=== PATIENT | female | born 1960 | race Caucasian/White ===

== ENCOUNTER 2018-12-15 15:51 | Inpatient (IN) | payer BC ==
[~2018-12-15] VITALS: Ht 165.1 cm; Wt 70.8 kg
[2018-12-15] MEDS ORDERED: normal saline 1000ML IV soln IVB ONE (16:15)
[2018-12-15] MEDS ORDERED: metoclopramide 5 mg/ml inj IV ONE (16:20)
[2018-12-15] MEDS: diatr meglu/diatrizoate 30ml oral sol.-(3 dose) bottle PO SCH ×3 (16:38→18:13)
[2018-12-15 16:54] LABS: BASOPHILS % (AUTO) 0.2 % (0-1); EOSINOPHILS % (AUTO) 0.1 % (0-6); HEMATOCRIT 41.4 % (35.0-45.0); HEMOGLOBIN 13.9 g/dl (12.0-16.0); LYMPHOCYTES # (AUTO) 1.3 X10'3 (1.1-4.8); LYMPHOCYTES % (AUTO) 20.3 % (21-51); MEAN CORPUSCULAR HEMOGLOBIN 31.4 PG (27.0-31.0); MEAN CORPUSCULAR HGB CONC 33.5 g/dL (33.0-36.5); MEAN CORPUSCULAR VOLUME 93.7 FL (78-98); MEAN PLATELET VOLUME 8.8 FL (7.4-10.4); MONOCYTES # (AUTO) 0.3 X10'3 (0-0.9); MONOCYTES % (AUTO) 5.5 % (2-12); NEUTROPHILS # (AUTO) 4.7 X10'3 (1.8-7.7); NEUTROPHILS % (AUTO) 73.9 % (42-75); PLATELET COUNT 251 X10'3 (140-440); RED BLOOD COUNT 4.41 X10'6 (4.20-5.60); RED CELL DISTRIBUTION WIDTH 13.4 % (11.5-14.5); WHITE BLOOD COUNT 6.3 X10'3 (4.5-11.0)
[2018-12-15 17:05] LABS: ALANINE AMINOTRANSFERASE 19 U/L (12-78); ALBUMIN 3.8 G/DL (3.4-5.0); ALBUMIN/GLOBULIN RATIO 1.1 (1.1-1.5); ALKALINE PHOSPHATASE 80 IU/L (46-116); ANION GAP 9 (8-16); ASPARTATE AMINO TRANSFERASE 17 U/L (10-37); BILIRUBIN,TOTAL 0.5 MG/DL (0.1-1.0); BLOOD UREA NITROGEN 12 MG/DL (7-18); BUN/CREATININE RATIO 15.4 (6.6-38.0); CALCIUM 8.8 MG/DL (8.5-10.1); CHLORIDE 103 MMOL/L (99-107); CREATININE 0.78 MG/DL (0.40-0.90); GLUCOSE 102 MG/DL (70-104); LIPASE 70 U/L (73-393); POTASSIUM 3.7 MMOL/L (3.5-5.1); SODIUM 138 MMOL/L (135-145); TOTAL CARBON DIOXIDE 26.1 MMOL/L (24-32); TOTAL PROTEIN 7.4 G/DL (6.4-8.2); eGFR 76 ML/MIN
[2018-12-15] MEDS ORDERED: ketorolac trometh. 30mg/ml inj. IV ONE (17:30)
[2018-12-15] MEDS ORDERED: iohexol 300mg/ml 100ml inj. ONE (17:35)
[2018-12-15] MEDS ORDERED: proCHLORperazine 10 MG/2 ml inj IV ONE (18:40)
[2018-12-15 18:42] LABS: CLARITY,URINE SLIGHTLY CLOUDY (Clear); COLOR,URINE YELLOW (Yellow); GLUCOSE, URINE NEGATIVE (Neg); KETONES,URINE 40 mg/dl (Neg); LEUKOCYTE ESTERASE ,URINE NEGATIVE (Neg); NITRITES, URINE NEGATIVE (Neg); OCCULT BLOOD,URINE LARGE (Neg); PROTEIN,URINE NEGATIVE (Neg); UROBILINOGEN,URINE 0.2 E.U/dL (0.2-1.0)
[2018-12-15 18:48] LABS: BACTERIA,URINE FEW /HPF (Neg); SQUAMOUS EPITHELIAL CELL,UR MODERATE /LPF (FEW); UA COLLECTION TYPE CLN CATCH MIDSTREAM; WBC,URINE NONE SEEN /HPF (0-4)
[2018-12-15] MEDS ORDERED: fentaNYL/PF 50MCG/1 ML 2ML syringe IV ONE (20:05)
[2018-12-15] MEDS ORDERED: piperacillin/tazo 3.375gm/50ml 50 ML IV ONE (20:05)
[2018-12-15] MEDS ORDERED: normal saline 1000ML IV soln IV ONE (20:05)
[2018-12-15] MEDS ORDERED: NO HOME MEDS (20:13)
[2018-12-15] MEDS ORDERED: MIDAZolam 5mg/5ml vial ONE (20:20)
[2018-12-15] MEDS ORDERED: fentaNYL/PF 50MCG/1 ML 2ML syringe ONE (20:20)
--- NOTE | 2018-12-15 20:29 | NUR ---
NG TUBE ATTEMPTED. NO SUCCESS. ES PERRY NOTIFIED.
[2018-12-15 20:40] VITALS: BP 114/62
--- NOTE | 2018-12-15 20:41 | NUR ---
PT TO GI LAB VIA [facility]. [facility]KK[facility] PENALOZA TRANSPORTING.
[2018-12-15] MEDS ORDERED: ondansetron/PF 4mg/2ml inj IV PRN (21:05)
[2018-12-15] MEDS ORDERED: morphine 2 MG/ML inj. syringe IV PRN ×2 (21:05)
[2018-12-15] MEDS ORDERED: acetaminophen 325mg tablet PO PRN (21:05)
[2018-12-15 22:15] VITALS: BP 101/56
[2018-12-15 22:25] VITALS: BP 101/54
[2018-12-15 22:35] VITALS: BP 104/60
[2018-12-15 22:45] VITALS: BP 105/63
[2018-12-15 23:00] VITALS: BP 110/41
--- NOTE | 2018-12-15 23:00 | NUR ---
Patient in room ED 9. I have received report from CA Easton and had the opportunity to ask questions and assume patient care.
[2018-12-15] MEDS: normal saline 1000ml 1,000 ML IV SCH (23:53)
[2018-12-16] MEDS: piperacillin/tazo 3.375gm/50ml 50 ML IV SCH ×2 (04:28→11:43)
[2018-12-16 05:10] LABS: BASOPHILS % (AUTO) 0.4 % (0-1); EOSINOPHILS % (AUTO) 0.2 % (0-6); HEMATOCRIT 33.4 % (35.0-45.0); HEMOGLOBIN 11.3 g/dl (12.0-16.0); LYMPHOCYTES # (AUTO) 1.8 X10'3 (1.1-4.8); LYMPHOCYTES % (AUTO) 30.6 % (21-51); MEAN CORPUSCULAR HEMOGLOBIN 31.8 PG (27.0-31.0); MEAN CORPUSCULAR HGB CONC 33.9 g/dL (33.0-36.5); MEAN CORPUSCULAR VOLUME 93.7 FL (78-98); MEAN PLATELET VOLUME 8.9 FL (7.4-10.4); MONOCYTES # (AUTO) 0.4 X10'3 (0-0.9); MONOCYTES % (AUTO) 7.4 % (2-12); NEUTROPHILS # (AUTO) 3.7 X10'3 (1.8-7.7); NEUTROPHILS % (AUTO) 61.4 % (42-75); PLATELET COUNT 208 X10'3 (140-440); RED BLOOD COUNT 3.57 X10'6 (4.20-5.60); RED CELL DISTRIBUTION WIDTH 13.4 % (11.5-14.5)
[2018-12-16 05:52] LABS: ALANINE AMINOTRANSFERASE 15 U/L (12-78); ALBUMIN 2.7 G/DL (3.4-5.0); ALKALINE PHOSPHATASE 57 IU/L (46-116); ANION GAP 9 (8-16); ASPARTATE AMINO TRANSFERASE 14 U/L (10-37); BILIRUBIN,TOTAL 0.5 MG/DL (0.1-1.0); BLOOD UREA NITROGEN 7 MG/DL (7-18); BUN/CREATININE RATIO 10.6 (6.6-38.0); CALCIUM 7.7 MG/DL (8.5-10.1); CHLORIDE 111 MMOL/L (99-107); CREATININE 0.66 MG/DL (0.40-0.90); GLUCOSE 99 MG/DL (70-104); POTASSIUM 3.3 MMOL/L (3.5-5.1); SODIUM 143 MMOL/L (135-145); TOTAL CARBON DIOXIDE 23.5 MMOL/L (24-32); TOTAL PROTEIN 5.4 G/DL (6.4-8.2); eGFR > 90 ML/MIN
--- NOTE | 2018-12-16 06:09 | NUR ---
Problems reprioritized. Patient report given, questions answered & plan of care reviewed with CA Ochoa.
--- NOTE | 2018-12-16 06:30 | NUR ---
Patient in room [facility] 340. I have received report from Yariel PENALOZA and had the opportunity to ask questions and assume patient care.
--- NOTE | 2018-12-16 06:45 | NUR ---
Patient in room [facility] 340. I have received report from CA Saldivar and had the opportunity to ask questions and assume patient care.
[2018-12-16] MEDS: normal saline 1000ml 1,000 ML IV SCH ×2 (07:04→10:48)
[2018-12-16 08:00] VITALS: BP 108/66
[2018-12-16] MEDS ORDERED: magnesium hydroxide 30ml (MOM) UD suspension PO ONE (09:00)
[2018-12-16] MEDS ORDERED: magnesium citrate 296ml oral solution PO ONE (09:00)
[2018-12-16 11:00] VITALS: BP 105/42
[2018-12-16 11:15] VITALS: BP 105/42
[2018-12-16] MEDS ORDERED: POLY17PO10 PO (15:26)
--- NOTE | 2018-12-16 17:00 | NUR ---
Patient discharge teaching was done with patient verbally. Patient expressed understanding of teaching. Patient had Rx sent to pharmacy. Patient is to follow up with primary in 2-3 days and follow up for surgery with dr. kiser in 1-2 weeks. patient had large BM upon discharge . Patient iv was taken out at discharge and canula was intact, site showed some bleeding and dressing was changed once before discharge and pressure was held for two miniutes. Patient walked to [facility] with [facility] escort and was transported home in private vehicle.
== END 2018-12-16 16:23 | disposition home or self-care (01) | DRG 390 ==
LOC: ER 15:52 → ED HOLD 21:09 → SUR 3N 23:35
PROVIDERS: ADMIT Internal Medicine; ATTEND Family Medicine
PROC: 0D9N80Z Drainage of Sigmoid Colon with Drainage Device, Via Natural or Artificial Opening Endoscopic (ICD-10-PCS; principal; 2018-12-15)
PROC: BW211ZZ Computerized Tomography (CT Scan) of Abdomen and Pelvis using Low Osmolar Contrast (ICD-10-PCS; 2018-12-15)
DX: K56.2 Volvulus (principal); R01.1 Cardiac murmur, unspecified; Z85.038 Personal history of other malignant neoplasm of large intestine; Z87.891 Personal history of nicotine dependence; Z88.5 Allergy status to narcotic agent; Z88.8 Allergy status to other drugs, medicaments and biological substances
CPT/HCPCS: 36415; 45337; 74018; 74177; 80053; 81001; 83605; 83690; 84145; 85025; 87040; 87081; 96361; 96365; 96375; 99152; 99153; 99285; A4620; G0378; J0780; J1885; J2250; J2543; J2765; J3010; J7030; J7040; Q9963; Q9967